=== PATIENT | male | born 1980 | race Caucasian/White ===

== ENCOUNTER 2023-02-28 19:47 | Emergency (ER) | payer SELFPAY ==
[~2023-02-28] VITALS: Ht 180.3 cm; Wt 127.3 kg
[~2023-02-28 19:47] MED LIST: NO HOME MEDICATIONS
[2023-02-28 20:01] VITALS: TEMP 98.3
[2023-02-28 20:38] LABS: BASO # 0.1 K/mm3 (0.0-0.2); BASO % 0.9 % (0.0-2.0); EOS # 0.2 K/mm3 (0.0-0.7); EOS % 1.6 % (0.0-4.0); GRAN # 5.9 K/mm3 (1.4-6.5); GRAN % 57.6 % (42.2-75.2); HEMATOCRIT 43.7 % (42.0-52.0); HEMOGLOBIN 15.3 g/dl (13.5-18.0); LYMPH % 28.9 % (20.0-51.0); MEAN CELL VOLUME 90 fl (80.0-100.0); MEAN CORPUSCULAR HEMOGLOBIN 32 pg (27-31); MEAN CORPUSCULAR HGB CONC 35 g/dl (33.0-37.0); MONO # 1.1 K/mm3 (0.1-0.6); MONO % 10.7 % (1.7-9.3); PLATELET COUNT 410 K/mm3 (130-400); RED BLOOD COUNT 4.84 M/mm3 (4.20-5.60); REDCELL DISTRIBUTION WIDTH-CV 13.1 % (11.5-14.5)
[2023-02-28 20:58] LABS: ALBUMIN 4.2 gm/dL (3.5-5.0); BILIRUBIN,TOTAL 0.2 mg/dL (0.2-1.2); CALCIUM 9.5 mg/dL (8.4-10.2); CREATININE, serum 1.05 mg/dL (0.72-1.25); POTASSIUM 4.1 mmol/L (3.5-4.5); TOTAL PROTEIN 7.8 gm/dL (6.2-8.1)
[2023-02-28] MEDS ORDERED: Iohexol 300 - 100 ML VIAL IV ONE (21:31)
[2023-02-28] MEDS ORDERED: NS 74 ML IV ONE (21:32)
[2023-02-28] MEDS ORDERED: ANTIVERT 25MG25 MG PO (22:16)
[2023-02-28 22:40] VITALS: BP 140/60; PULSE 80
== END 2023-02-28 22:40 | disposition home or self-care (01) ==
LOC: COL.ER 19:47
PROVIDERS: Personal Emergency Response Attendant
DX: R42 Dizziness and giddiness (principal); H92.01 Otalgia, right ear; M54.2 Cervicalgia; R51.9 Headache, unspecified; R74.01 Elevation of levels of liver transaminase levels
CPT/HCPCS: Q9967